=== PATIENT | female | born 1940 | race African-American/Black ===

== ENCOUNTER 2021-09-25 00:39 | Emergency (ER) | payer SELFPAY ==
[~2021-09-25] VITALS: Ht 149.9 cm; Wt 63.5 kg
[2021-09-25 00:55] VITALS: BP_SYST 136
[2021-09-25] MEDS ORDERED: IBUPROFEN 600 MG TABLET PO ONE (03:00)
[2021-09-25] MEDS ORDERED: COLCHICINE 0.6 MG TABLET PO ONE (03:00)
[2021-09-25] MEDS ORDERED: HYDROcodone/ACETAMIN 5-325 MG TAB (NORCO/ VICODIN) PO ONE (03:00)
[2021-09-25] MEDS ORDERED: COLCHICINE 0.6 MG TABLET ONE (03:23)
[2021-09-25] MEDS ORDERED: HYDR-3917 PO (03:32)
[2021-09-25] MEDS ORDERED: COLC0.6T67 PO (03:32)
[2021-09-25] MEDS ORDERED: INDO-12 PO (03:32)
[2021-09-25 03:35] LABS: BASOPHILS # (AUTO) 0.1 K/uL (0.0-0.2); BASOPHILS % (AUTO) 0.4 % (0.0-2.0); EOSINOPHILS % (AUTO) 0.2 % (0.0-4.0); HEMATOCRIT 36.9 % (36-48); HEMOGLOBIN 12.1 g/dL (12.0-16.0); LYMPHOCYTES # (AUTO) 2.9 K/uL (1.0-5.5); LYMPHOCYTES % (AUTO) 16.5 % (20.5-51.5); MEAN CORPUSCULAR HEMOGLOBIN 29 pg (27-31); MEAN CORPUSCULAR HGB CONC 33 % (32-36); MEAN CORPUSCULAR VOLUME 87 fL (79.0-98.0); MONOCYTES # (AUTO) 0.9 K/uL (0.0-1.0); MONOCYTES % (AUTO) 5.2 % (1.7-9.3); NEUTROPHILS # (AUTO) 13.8 K/uL (1.8-7.7); NEUTROPHILS % (AUTO) 77.7 % (40.0-70.0); PLATELET COUNT (AUTO) 285 K/uL (130-430); RED BLOOD CELL COUNT(AUTO) 4.22 MIL/uL (4.2-6.2); RED CELL DISTRIBUTION WIDTH 14.5 % (9.0-15.0); WHITE BLOOD COUNT (AUTO) 17.7 K/uL (4.8-10.8)
[2021-09-25 03:47] VITALS: BP_SYST 129
[2021-09-25 04:26] LABS: ANION GAP 11 (5-15); CALCIUM 9.8 mg/dL (8.4-11.0); CHLORIDE 102 mmol/L (98-107); GLUCOSE 96 mg/dL (70-99); POTASSIUM 4.2 mmol/L (3.5-5.1); SODIUM SERUM 142 mmol/L (136-145); UREA NITROGEN, BLOOD 17 mg/dL (8-21); URIC ACID 9.2 mg/dL (2.4-7.0)
[2021-09-25 04:49] LABS: CREATININE 0.83 mg/dL (0.55-1.30)
[2021-09-25] MEDS ORDERED: CEPH250C PO (06:35)
== END 2021-09-25 03:46 | disposition home or self-care (01) ==
LOC: SED 00:39
DX: M10.9 Gout, unspecified (principal); I10 Essential (primary) hypertension; Z79.899 Other long term (current) drug therapy
CPT/HCPCS: 36415; 80048; 84550; 85025; 99284